=== PATIENT | male | born 2005 | race Caucasian/White ===

== ENCOUNTER 2024-10-08 18:40 | Emergency (ER) | payer MEDICAID ==
[~2024-10-08] VITALS: Ht 175.3 cm; Wt 89.1 kg
[~2024-10-08 18:40] MED LIST: ACET-3685 PO; BROM237S PO
[2024-10-08 18:51] VITALS: BP 136/77; PULSE 79; RESP 12; TEMP 97.7; O2SAT 99
== END 2024-10-08 19:26 | disposition left against medical advice (07) ==
LOC: EMS 18:40
DX: T15.92XA Foreign body on external eye, part unspecified, left eye, initial encounter (principal); Z53.21 Procedure and treatment not carried out due to patient leaving prior to being seen by health care provider; W44.8XXA Other foreign body entering into or through a natural orifice, initial encounter; Y93.89 Activity, other specified; Y92.89 Other specified places as the place of occurrence of the external cause; Y99.8 Other external cause status